=== PATIENT | female | born 2000 | race African-American/Black ===

== ENCOUNTER 2018-05-16 15:00 | Emergency (ER) | payer BC ==
[~2018-05-16] VITALS: Ht 180.3 cm; Wt 52.3 kg
[2018-05-16 15:10] VITALS: TEMP 99
[2018-05-16] MEDS ORDERED: LEXAPRO20 MG PO (15:24)
[2018-05-16] MEDS ORDERED: LAMICTAL 25MG T25 MG PO (15:24)
[2018-05-16 15:56] VITALS: BP 121/72; PULSE 84
== END 2018-05-16 15:55 | disposition home or self-care (01) ==
LOC: COL.ER 15:00
DX: S81.812A Laceration without foreign body, left lower leg, initial encounter (principal); F31.9 Bipolar disorder, unspecified; W26.8XXA Contact with other sharp object(s), not elsewhere classified, initial encounter